=== PATIENT | female | born 1935 | race African-American/Black ===

== ENCOUNTER 2017-01-08 18:44 | Emergency (ER) | payer OTHER ==
--- NOTE | 2017-01-08 19:09 | PDOC ---
History of Present Illness - General History Source: Patient Exam Limitations: No Limitations - History of Present Illness Initial Comments: 01/08/17 19:17 Patient is a 81 year old female with a significant past medical history of osteoarthritis and rheumatoid arthritis who presents to the ED s/p fall. Patient was sitting in the wheelchair and had an urgency to go to the bathroom, as she began to wheel herself to the bathroom she fell forward because the brakes were on the wheelchair. Patient hit her head and left clavicle during the fall. She denies any blurry vision, headache, chest pain or SOB. She denies fever, chills, nausea, vomiting or diarrhea. She denies any LOC and non was reported. <Salima Rosales - Last Filed: 01/08/17 19:33> <Anna Garces - Last Filed: 01/09/17 00:51> - General Chief Complaint: Injury Stated Complaint: HEAD TRAUMA Time Seen by Provider: 01/08/17 19:05 Past History <Salima Rosales - Last Filed: 01/08/17 19:33> <Anna Garces - Last Filed: 01/09/17 00:51> - Past Medical History Allergies/Adverse Reactions: Allergies Allergy/AdvReac Type Severity Reaction Status Date / Time levofloxacin [From Levaquin] Allergy Verified 01/08/17 19:10 Penicillins Allergy Verified 01/08/17 19:10 Quinolones Allergy Verified 01/08/17 19:10 Home Medications: Ambulatory Orders Acetaminophen [Tylenol] 650 mg PO PRN PRN 01/08/17 Aspirin [ASA -] 81 mg PO DAILY 01/08/17 Calcium Carbonate/Vitamin D3 [Oyster Shell 500-Vit D3 200 Tb] 1 each PO DAILY Folic Acid 1 mg PO DAILY 01/08/17 Magnesium Hydrox 2400MG/30Ml [Milk of Magnesia -] 30 ml PO HS 01/08/17 Oxycodone HCl [Roxicodone -] 5 mg PO DAILY 01/08/17 Review of Systems - Review of Systems Able to Perform ROS?: Yes Comments:: 01/08/17 19:29 CONSTITUTIONAL: Absent: fever, chills, diaphoresis, generalized weakness, malaise, loss of appetite HEENT: Absent: rhinorrhea, nasal congestion, throat pain, throat swelling, difficulty swallowing, mouth swelling, ear pain, eye pain, visual Changes CARDIOVASCULAR: Absent: chest pain, syncope, palpitations, irregular heart rate, lightheadedness , peripheral edema RESPIRATORY: Absent: cough, shortness of breath, dyspnea with exertion, orthopnea, wheezing, stridor, hemoptysis GASTROINTESTINAL: Absent: abdominal pain, abdominal distension, nausea, vomiting, diarrhea, constipation, melena, hematochezia GENITOURINARY: Absent: dysuria, frequency, urgency, hesitancy, hematuria, flank pain, genital pain MUSCULOSKELETAL: Present: +clavicle pain Absent: myalgia, arthralgia, joint swelling SKIN: Absent: rash, itching, pallor HEMATOLOGIC/IMMUNOLOGIC: Absent: easy bleeding, easy bruising, lymphadenopathy, frequent infections ENDOCRINE: Absent: unexplained weight gain, unexplained weight loss, heat intolerance, cold intolerance NEUROLOGIC: Absent: headache, focal weakness or paresthesias, dizziness, unsteady gait, seizure, mental status changes, bladder or bowel incontinence PSYCHIATRIC: Absent: anxiety, depression, suicidal or homicidal ideation, hallucinations. <Salima Rosales - Last Filed: 01/08/17 19:33> *Physical Exam - Vital Signs Last Vital Signs Temp Pulse Resp BP Pulse Ox 97.2 F L 103 H 17 116/60 99 01/08/17 19:10 01/08/17 19:10 01/08/17 19:10 01/08/17 19:10 01/08/17 19:10 - Physical Exam Comments: 01/08/17 19:30 GENERAL: Well developed, well nourished. Alert and conversing. No acute distress. HEENT: +6 x 5 cm hematoma frontal. Normocephalic. PERRLA, EOMI. No conjunctival pallor. Sclera are non-icteric. Moist mucous membranes. Oropharynx is clear. NECK: Supple. Full ROM. No JVD. Carotid pulses 2+ and symmetric, without bruits. No thyromegaly. No lymphadenopathy. CARDIOVASCULAR: Regular rate and rhythm. No murmurs, rubs, or gallops. Distal pulses are 2+ and symmetric. PULMONARY: No evidence of respiratory distress. Lungs clear to auscultation bilaterally. No wheezing, rales or rhonchi. ABDOMINAL: Soft. Non-tender. Non-distended. No rebound or guarding. No organomegaly. Normoactive bowel sounds. MUSCULOSKELETAL +tenderness and erythema to the left clavicle. Normal range of motion at all joints. No bony deformities. No CVA tenderness. EXTREMITIES: +Severe arthritis with contraction of their extremities. +able to move all extremities. No cyanosis. No clubbing. No edema. No calf tenderness. SKIN: +chronic venous stasis. Warm and dry. Normal capillary refill. No rashes. No jaundice. NEUROLOGICAL: Alert, awake, appropriate. Cranial nerves 2-12 intact. No deficits to light touch and temperature in face, upper extremities and lower extremities. No motor deficits in the in face, upper extremities and lower extremities. Normoreflexic in the upper and lower extremities. Normal speech. PSYCHIATRIC: Cooperative. Good eye contact. Appropriate mood and affect. <Salima Rosales - Last Filed: 01/08/17 19:33> Medical Decision Making - Medical Decision Making 01/09/17 00:49 alert 81 yo female fell forward out of her wheel chair sustained a forehead hematoma- no LOC ct scan c spine no acute injury ct scan head no acute intracranial pathology <Anna Garces - Last Filed: 01/09/17 00:51> *DC/Admit/Observation/Transfer - Attestations Scribe Attestion: 01/08/17 19:32 Documentation prepared by WALESKA Rodriguez, acting as medical supervisor for Anna Garces MD. <Salima Rosales - Last Filed: 01/08/17 19:33> <Anna Garces - Last Filed: 01/09/17 00:51> Diagnosis at time of Disposition: Hematoma Head injury Qualifiers: Encounter type: initial encounter Qualified Code(s): S09.90XA - Unspecified injury of head, initial encounter - Discharge Dispostion Disposition: HOME Condition at time of disposition: Stable - Referrals Referrals: Javier Gloria [Primary Care Provider] - - Patient Instructions Printed Discharge Instructions: DI for Closed Head Injury Additional Instructions: 1-ct scan of head was NEGATIVE for fracture or bleed 2-ct scan of neck -no fracture,no dislocation 3-please be aware of any change in mental statues. If this patient develops any lethargy or severe headache associated with vomiting-return to the emergency department mentation
[2017-01-08 19:13] VITALS: BP 116/60; PULSE 103; TEMP 97.2; BMI 21.9
[2017-01-08] MEDS ORDERED: ACETAMINOPHEN 325 MG TABLET (FP) PO ONE (22:28)
[2017-01-08] MEDS ORDERED: ACETAMINOPHEN 325 MG TABLET (FP) ONE (23:01)
== END 2017-01-09 00:14 ==
LOC: JER 18:44
DX: S00.83XA Contusion of other part of head, initial encounter (principal); W05.0XXA Fall from non-moving wheelchair, initial encounter; Y93.89 Activity, other specified; Y92.128 Other place in nursing home as the place of occurrence of the external cause; M06.9 Rheumatoid arthritis, unspecified; M19.90 Unspecified osteoarthritis, unspecified site
CPT/HCPCS: 70450-TC; 72125-TC; 99281-25